=== PATIENT | female | born 1980 | race Caucasian/White ===

== ENCOUNTER 2020-02-06 14:52 | Inpatient (IN) | payer OTHER ==
[~2020-02-06] VITALS: Ht 175.3 cm; Wt 86.8 kg
[2020-02-06 15:19] VITALS: BP 116/62
[2020-02-06] MEDS ORDERED: PLEASE ENTER ALLERGIES MC SCH (15:30)
[2020-02-06] MEDS ORDERED: PLEASE ENTER HEIGHT AND WEIGHT MC SCH (15:30)
[2020-02-06] MEDS ORDERED: LACTATED RINGERS 1,000 ML IVBOLUS ONE (15:30)
[2020-02-06] MEDS: LACTATED RINGERS 1,000 ML IV SCH (16:38)
[2020-02-06] MEDS ORDERED: OXYTOCIN 30U/ 0.9% NaCL 500ML 500 ML IV PRN ×2 (17:18→23:26)
[2020-02-06] MEDS ORDERED: OXYTOCIN 30U/ 0.9% NaCL 500ML 500 ML IV ONE (17:18)
[2020-02-06] MEDS ORDERED: D5%-LACTATED RINGERS 1,000 ML IV SCH (17:18)
[2020-02-06] MEDS ORDERED: FENTANYL PF 100 MCG/2ML IV PRN (17:30)
[2020-02-06] MEDS ORDERED: SODIUM CITRATE/CITRIC ACID 30 ML UDC PO PRN (17:30)
[2020-02-06] MEDS ORDERED: TERBUTALINE 1 MG/ML, 1ML IVPush PRN (17:30)
[2020-02-06] MEDS ORDERED: ONDANSETRON 2MG/ML, 2ML IVPush PRN ×2 (17:30→23:00)
[2020-02-06] MEDS ORDERED: TERBUTALINE 1 MG/ML, 1ML SQ PRN (17:30)
[2020-02-06] MEDS ORDERED: METOCLOPRAMIDE 5 MG/ML, 2ML IVPush PRN (17:30)
[2020-02-06] MEDS ORDERED: FENTANYL PF 100 MCG/2ML IVPush PRN (17:30)
[2020-02-06] MEDS ORDERED: MISOPROSTOL 200 MCG TABLET ONE (17:31)
[2020-02-06] MEDS ORDERED: OXYTOCIN 30U/ 0.9% NaCL 500ML 500 ML ONE (17:31)
[2020-02-06] MEDS ORDERED: NEWBORN KIT ONE (17:31)
[2020-02-06] MEDS ORDERED: LIDOCAINE 1%, 20ML ONE (17:31)
[2020-02-06] MEDS ORDERED: FENTANYL PF 500 MCG, BUPIVACAINE/PF 0.5%, 30ML 62.5 ML in SODIUM CHLORIDE 0.9% 177.5 ML EPIDCONT ONE (18:00)
[2020-02-06] MEDS ORDERED: LACTATED RINGERS 1,000 ML IVBOLUS PRN (18:00)
[2020-02-06 18:17] LABS: BASOPHILS # (AUTO) 0.03 x10^3/uL (0-0.1); BASOPHILS % (AUTO) 0 % (0-1); EOSINOPHILS # (AUTO) 0.04 x10^3/uL (0-0.4); EOSINOPHILS % (AUTO) 0 % (1-7); LYMPHOCYTES # (AUTO) 2.36 x10^3/uL (1-3.4); LYMPHOCYTES % (AUTO) 19 % (22-44); MD NO; MEAN CORPUSCULAR HEMOGLOBIN 34.2 pg (27.0-34.8); MEAN CORPUSCULAR HGB CONC 33.7 g/dL (32.4-35.8); MEAN CORPUSCULAR VOLUME 101.3 fL (80-100); MEAN PLATELET VOLUME 9.4 fL (7.4-10.4); MONOCYTES # (AUTO) 0.56 x10^3/uL (0.2-0.8); MONOCYTES % (AUTO) 5 % (2-9); NEUTROPHILS % (AUTO) 76 % (42-75); PLATELET COUNT 157 x10^3/uL (130-400); RED BLOOD COUNT 4.34 x10^6/uL (3.82-5.3); RED CELL DISTRIBUTION WIDTH 13.3 % (9.6-15.2)
[2020-02-06] MEDS ORDERED: CALCIUM CARBONATE 500 MG TAB.CHEW ONE (21:24)
[2020-02-06] MEDS: CALCIUM CARBONATE 500 MG TAB.CHEW PO PRN (21:28)
[2020-02-06] MEDS ORDERED: OMEP20TA62 PO (21:28)
[2020-02-06] MEDS ORDERED: VALA500T4 PO (21:30)
[2020-02-06] MEDS ORDERED: BUPIVACAINE 0.25% ONE (22:11)
[2020-02-06] MEDS ORDERED: FENTANYL PF 100 MCG/2ML ONE (22:11)
[2020-02-06] MEDS ORDERED: LACTATED RINGERS 1,000 ML IV SCH (22:45)
[2020-02-06] MEDS ORDERED: FENTANYL/BUPIV./NS/PF 250 ML EPIDCONT SCH (22:45)
[2020-02-06] MEDS ORDERED: EPHEDRINE 50 MG/ML, 1ML IVPush PRN (23:00)
[2020-02-07] MEDS: LACTATED RINGERS 1,000 ML IV SCH ×3 (02:44→23:30)
[2020-02-07] MEDS ORDERED: CALCIUM CARBONATE 500 MG TAB.CHEW ONE (02:47)
[2020-02-07] MEDS: CALCIUM CARBONATE 500 MG TAB.CHEW PO PRN (02:48)
[2020-02-07] MEDS ORDERED: LACTATED RINGERS 1,000 ML INTUTE PRN (03:30)
[2020-02-07] MEDS ORDERED: LACTATED RINGERS 1,000 ML INTUTE SCH (03:30)
[2020-02-07] MEDS ORDERED: ONDANSETRON 2MG/ML, 2ML IV PRN (06:00)
[2020-02-07] MEDS ORDERED: OXYcodone/APAP 5/325MG TABLET PO PRN ×2 (06:00)
[2020-02-07] MEDS ORDERED: METOCLOPRAMIDE 5 MG/ML, 2ML IV PRN (06:00)
[2020-02-07] MEDS ORDERED: SIMETHICONE 80 MG CHEW TAB PO PRN (06:00)
[2020-02-07] MEDS ORDERED: MISOPROSTOL 200 MCG TABLET SL PRN (06:00)
[2020-02-07] MEDS ORDERED: OXYTOCIN 30U/ 0.9% NaCL 500ML 500 ML ONE (06:31)
[2020-02-07] MEDS: OXYTOCIN 30U/ 0.9% NaCL 500ML 500 ML IV SCH ×2 (06:34→19:00)
[2020-02-07] MEDS: IBUPROFEN 600 MG TABLET PO PRN ×3 (08:32→23:08)
[2020-02-07] MEDS: PRENATAL VIT/IRON/FA 1 EACH TABLET PO SCH (08:32)
[2020-02-07] MEDS: DOCUSATE 100 MG CAPSULE PO PRN ×2 (08:32→23:08)
[2020-02-07 09:44] VITALS: BP 100/66
[2020-02-07 12:28] LABS: BASOPHILS # (AUTO) 0.08 x10^3/uL (0-0.1); BASOPHILS % (AUTO) 1 % (0-1); EOSINOPHILS # (AUTO) 0.03 x10^3/uL (0-0.4); EOSINOPHILS % (AUTO) 0 % (1-7); LYMPHOCYTES # (AUTO) 2.26 x10^3/uL (1-3.4); LYMPHOCYTES % (AUTO) 15 % (22-44); MD NO; MEAN CORPUSCULAR HEMOGLOBIN 34.3 pg (27.0-34.8); MEAN CORPUSCULAR HGB CONC 33.8 g/dL (32.4-35.8); MEAN CORPUSCULAR VOLUME 101.7 fL (80-100); MEAN PLATELET VOLUME 9.1 fL (7.4-10.4); MONOCYTES # (AUTO) 0.85 x10^3/uL (0.2-0.8); MONOCYTES % (AUTO) 6 % (2-9); NEUTROPHILS # (AUTO) 12.28 x10^3/uL (1.8-6.8); NEUTROPHILS % (AUTO) 79 % (42-75); PLATELET COUNT 150 x10^3/uL (130-400); RED CELL DISTRIBUTION WIDTH 13.3 % (9.6-15.2)
[2020-02-07 14:00] VITALS: BP 103/66
[2020-02-07 19:45] VITALS: BP 109/56
[2020-02-08 00:15] VITALS: BP 106/59
[2020-02-08] MEDS: OXYTOCIN 30U/ 0.9% NaCL 500ML 500 ML IV SCH ×3 (01:52→21:52)
[2020-02-08 05:00] VITALS: BP 105/65
[2020-02-08] MEDS: LACTATED RINGERS 1,000 ML IV SCH ×3 (07:30→23:30)
[2020-02-08] MEDS: PRENATAL VIT/IRON/FA 1 EACH TABLET PO SCH (07:48)
[2020-02-08] MEDS: DOCUSATE 100 MG CAPSULE PO PRN (07:48)
[2020-02-08 07:59] VITALS: BP 96/59
[2020-02-08] MEDS: IBUPROFEN 600 MG TABLET PO PRN (15:35)
[2020-02-08 20:10] VITALS: BP 129/79
[2020-02-09] MEDS: IBUPROFEN 600 MG TABLET PO PRN (02:48)
[2020-02-09] MEDS: LACTATED RINGERS 1,000 ML IV SCH (07:30)
[2020-02-09] MEDS: PRENATAL VIT/IRON/FA 1 EACH TABLET PO SCH (07:47)
[2020-02-09] MEDS: DOCUSATE 100 MG CAPSULE PO PRN (07:47)
[2020-02-09] MEDS: OXYTOCIN 30U/ 0.9% NaCL 500ML 500 ML IV SCH (07:52)
[2020-02-09 08:04] VITALS: BP 109/69
[2020-02-09] MEDS ORDERED: IBUP-1222 PO (10:01)
== END 2020-02-09 13:04 | disposition home or self-care (01) | DRG 806 ==
LOC: LDOP 14:52 → LDIP 17:42 → 2NW 02-07 08:09
PROVIDERS: ADMIT Obstetrics & Gynecology; ATTEND Obstetrics & Gynecology
PROC: 10907ZC Drainage of Amniotic Fluid, Therapeutic from Products of Conception, Via Natural or Artificial Opening (ICD-10-PCS; principal; 2020-02-07)
PROC: 10E0XZZ Delivery of Products of Conception, External Approach (ICD-10-PCS; 2020-02-07)
PROC: 0KQM0ZZ Repair Perineum Muscle, Open Approach (ICD-10-PCS; 2020-02-07)
PROC: 3E0R3BZ Introduction of Anesthetic Agent into Spinal Canal, Percutaneous Approach (ICD-10-PCS; 2020-02-07)
PROC: 00HU33Z Insertion of Infusion Device into Spinal Canal, Percutaneous Approach (ICD-10-PCS; 2020-02-07)
PROC: 3E033VJ Introduction of Other Hormone into Peripheral Vein, Percutaneous Approach (ICD-10-PCS; 2020-02-07)
DX: O76 Abnormality in fetal heart rate and rhythm complicating labor and delivery (principal); O41.03X0 Oligohydramnios, third trimester, not applicable or unspecified; Z37.0 Single live birth; O99.12 Other diseases of the blood and blood-forming organs and certain disorders involving the immune mechanism complicating childbirth; O35.1XX0 Maternal care for (suspected) chromosomal abnormality in fetus, not applicable or unspecified; J45.909 Unspecified asthma, uncomplicated; O99.52 Diseases of the respiratory system complicating childbirth; Z3A.40 40 weeks gestation of pregnancy; Q90.9 Down syndrome, unspecified; D69.6 Thrombocytopenia, unspecified; O70.1 Second degree perineal laceration during delivery; O99.344 Other mental disorders complicating childbirth; F31.9 Bipolar disorder, unspecified
CPT/HCPCS: 36415; J7121; S0020; 76819; 85025; 86592; 86850; 86900; G0378; J3010; J2590; J7050; J7120